=== PATIENT | female | born 1980 | race Caucasian/White ===

== ENCOUNTER 2021-04-29 16:26 | Emergency (ER) | payer SELFPAY ==
[2021-04-29 16:32] VITALS: BP 138/85; PULSE 79; RESP 16; TEMP 36.7; O2SAT 100
--- NOTE | 2021-04-29 16:51 | W.ED.GENAD ---
Discharge Plan Disposition Patient Disposition: HOME Condition: Stable Discharge Details Clinical Impression: Dependent edema Primary Care Provider: Unknown,Unknown ED Provider: Cary Bocanegra Home Meds and New Rx's Prescriptions: No Action No Known Home Meds RF: 0 Discharge Instructions Instructions: Leg Edema (ED) Additional Instructions: Your EKG today is reassuring and did not note any concerning abnormal findings. Rest and elevate your legs as much as possible. Avoid processed or high sodium foods as this may be contributing to leg swelling. Wear compression stockings as much as possible, especially when you will be frequently walking and standing to help with leg swelling. You were given 1 dose of a diuretic Lasix here today. You were given 2 additional doses of Lasix to take once daily tomorrow and Thursday. Call your primary care doctor's office to schedule a follow-up appointment for reevaluation within the next few weeks. Return immediately to the emergency department if you develop any worsening or new concerning symptoms such as persistent chest pain, shortness of breath, leg pain or any other concerns. Stand Alone Forms: Work Release Discharge Data Discharge Date/Time-TO BE ENTERED AT DEPARTURE: 04/29/21 17:35 Discharge Physician: Cary Bocanegra Medical Decision Making 40-year-old female presents with distal leg and feet swelling for the past few days. Patient started working for the [employer] 1 month ago and started the [employer] yesterday. She states she has been standing mostly all day which is new compared to her previous baseline in which she was sitting most of the day. She states she also has a poor diet with high sodium and processed foods. She does admit to a few days of heartburn and indigestion last week but states this is now resolved. She denies shortness of breath, leg pain. Her vitals are within normal limits. She has scattered wheezing but is a smoker and denies any shortness of breath. She has minimal less than 1+ nonpitting edema but no calf tenderness and negative Homans' sign. She is neurovascular intact. Suspect this is most likely dependent edema. Her urine test was negative. EKG unremarkable. She was given a dose of Lasix here and advised to rest, elevate and wear compression stocking to her legs. She is also advised to limit or avoid high processed sodium foods. She was given 2 tabs of Lasix ago for the next 2 days. History of presentation does not appear to state with CHF, ACS, PE, or DVT. Do not see indication for additional lab work or imaging patient is agreeable. Advised to follow up with the primary care doctor for re-evaluation. Usual and customary return precautions given prior to discharge. Medical Records Medical records reviewed: Yes I reviewed the patient's medical records. ECG Data Attestation: I personally reviewed and interpreted this ECG (s) as follows: Interpretation: Rate of 75, sinus, no acute ST elevation or depression. GA 135. QRS 84. QTc 444. HPI General Mode of arrival: ambulatory. Date/Time Provider Initiated Documentation: 04/29/21 16:27. Limitations to Documentation: no limitations. Information obtained by: patient. HPI Narrative: Patient is a 40yo F who presents to the ED w/ a c/o lower leg and feet swelling for the past 2 days. Patient states she has been working for the [employer] for the past month and has been standing most of the day. She states in her prior occupation, she was sitting mostly so this is a new change for her. She states yesterday she started at the [employer] where she will be for the next 5 weeks and has been standing all day. She denies any significant leg pain. She states last week she had an episode of heart pain, indigestion and nausea which she attributed to GERD which she has had in the past. She denies any heartburn or chest pain at present. She denies any fever, new cough or shortness of breath. She denies any significant recent travel or recent surgery. She states she has a poor diet with high processed and high sodium foods. She states she mainly wears sandals at work but sometimes wears mid length socks. Related Data Home Medications Medication Instructions Recorded Confirmed Unknown [No Known Home Meds] 04/29/21 04/29/21 Allergies Allergy/AdvReac Type Severity Reaction Status Date / Time No Known Allergies Allergy Unverified 04/29/21 16:38 General Stated Complaint: GenMedical SHANAE: 3 Review of Systems All systems reviewed & are unremarkable except as noted in HPI and below Constitutional Constitutional: Reports as per HPI, Denies chills and Denies fever(s) Eyes Eyes: Denies blurry vision ENT Ears, Nose, Mouth, and Throat: Denies dizziness, Denies sore throat and Denies throat swelling Cardiovascular Cardiovascular: Denies chest pain, Reports pedal edema, Reports leg edema and Denies dyspnea Respiratory Respiratory: Denies cough and Denies dyspnea Gastrointestinal Gastrointestinal: Denies abdominal pain, Denies diarrhea and Denies vomiting Genitourinary Genitourinary: Denies hematuria and Denies dysuria Musculoskeletal Musculoskeletal: Denies back pain and Denies numbness Integumentary/Breasts Skin/Breast: Denies lesions and Denies rash Neurologic Neurologic: Denies dizziness, Denies localized weakness and Denies numbness Allergic/Immunologic Allergic/Immunologic: Denies throat swelling [facility] Medical History (Updated 04/29/21 @ 17:16 by Cary Bocanegra DO) Asthma Surgical History (Updated 04/29/21 @ 16:57 by Najma Anthony) History of section Social History Smoking/Tobacco Use Status: Current every day Tobacco Type: cigarettes Smoking risk assessment performed?: Yes Alcohol Intake: never Substance use type: does not use Exam Const General: cooperative and no acute distress HENMT Head: normal to inspection Face and sinus: normal facial exam Eyes General: appearance normal, both eyes and all related structures EOM: EOM intact bilaterally Neck Neck: normal visual inspection and No submandibular swelling Lymphatic: no lymphadenopathy noted Chest Chest: normal inspection of the chest and no tenderness Resp Effort & Inspection: normal respiratory effort and able to speak in complete sentences Auscultation: wheezes scattered wheezes Cardio Rate: regular rate Rhythm: regular rhythm GI Inspection: normal to inspection Palpation: soft, not firm, not rigid and nontender Auscultation: normal bowel sounds Skin General skin exam: no rashes or lesions noted Neuro General: patient alert, patient awake and patient oriented x3 Cognition: normal cognition Speech: speech normal Motor: muscle tone normal throughout Sensory Exam: no sensory deficits noted Extrem General: normal to inspection, full ROM, capillary refill normal, no calf tenderness bilaterally and edema Laterality: bilateral (less than 1+ nonpitting b/l lower extremities extending from distal legs to feet) Psych Appearance: grossly normal Mental Status: mental status grossly normal Speech and Movement: speech and movement normal Affect: normal affect Course Vital Signs Vital signs: Vital Signs Temperature 98.1 F 04/29/21 16:32 Pulse 79 04/29/21 16:32 Respiratory Rate 16 04/29/21 16:32 Blood Pressure 138/85 04/29/21 16:32 Pulse Oximetry 100 04/29/21 16:32 Temperature 98.1 F 04/29/21 16:32 Temperature Source Skin 04/29/21 16:32 Pulse 79 04/29/21 16:32 Respiratory Rate 16 04/29/21 16:32 Respiratory Effort 04/29/21 16:32 Blood Pressure 138/85 04/29/21 16:32 Blood Pressure Position Sitting 04/29/21 16:32 Pulse Oximetry 100 04/29/21 16:32 Oxygen Delivery Method Room Air 04/29/21 16:32 Oxygen Flow Rate 0 04/29/21 16:32 Pain Level 5 04/29/21 16:32
--- NOTE | 2021-04-29 17:00 | RT.EKG_ITS ---
APPROVED REPORT Exam: Resting ECG Reason for Exam: heartburn Patient Location: E HR:75 bpm ECG Measurements Heart Rate 75 AXIS SC 135 P 54 QRSd 84 QRS 31 QT 396 T 13 QTc 444 Conclusion Sinus rhythm...normal P axis, V-rate 60- 99 Probable left atrial enlargement...P >50mS, <-0.10mV V1 Low voltage, precordial leads...precordial leads <1.0mV. Sinus. No STEMI. I have reviewed and interpreted ECG and agree with software generated interpretation.
[2021-04-29] MEDS: Furosemide 20 MG TAB PO (17:19)
[2021-04-29] MEDS: Furosemide 20 MG TAB 40 MG PO (17:29)
== END 2021-04-29 17:35 | disposition home or self-care (01) ==
LOC: ER 17:33
PROVIDERS: Emergency Provider Physician Assistant
DX: R60.9 Edema, unspecified (principal); R12 Heartburn
CPT/HCPCS: 81025; 93005; 99283; 93010